=== PATIENT | male | born 1980 | race Two or more races ===

== ENCOUNTER 2023-08-26 18:16 | Emergency (ER) | payer OTHER ==
[~2023-08-26] VITALS: Ht 172.7 cm; Wt 79.5 kg
[2023-08-26 20:17] VITALS: TEMP 98.7
[2023-08-26] MEDS: FLUORESCEIN SODIUM 1 MG STRIP OU ONE (20:43)
[2023-08-26] MEDS: PROPARACAINE HCL 0.5% 15 ML OPHTHALMIC SOLUTION OU ONE (20:46)
[2023-08-26 20:50] VITALS: BP 117/76; PULSE 50; RESP 16
[2023-08-26] MEDS: ERYTHROMYCIN 0.5% 3.5 GM TUBE OPHTHALMIC OINTMENT OS ONE (22:06)
[2023-08-26] MEDS: IBUPROFEN 600 MG TABLET PO ONE (22:08)
[2023-08-26] MEDS: PERTUSS(ACELL),DIPH,TET/PF 0.5 ML SYRINGE [ADULT] IM. ONE (22:09)
== END 2023-08-26 22:50 | disposition home or self-care (01) ==
LOC: EMS 18:20
DX: H11.32 Conjunctival hemorrhage, left eye (principal)
CPT/HCPCS: 90471; 90715; 99283